=== PATIENT | female | born 1980 | race Asian ===

== ENCOUNTER 2018-04-24 05:36 | Inpatient (IN) | payer MEDICAID ==
[2018-04-16 10:51] LABS: ADD MAN DIFF? NO
[2018-04-16 10:54] LABS: BASOPHILS % 0.8 % (0.0-2.0); EOSINOPHILS # 0.1 10^3/ul (0.0-0.5); EOSINOPHILS % 2.5 % (0.0-7.0); HEMATOCRIT 42.6 % (37.0-47.0); HEMOGLOBIN 14.3 g/dl (12.0-16.0); LYMPHOCYTES # 1.9 10^3/ul (0.8-2.9); LYMPHOCYTES % 36.5 % (15.0-51.0); MEAN CORPUSCULAR HEMOGLOBIN 32.2 pg (29.0-33.0); MEAN CORPUSCULAR HGB CONC 33.6 g/dl (32.0-37.0); MEAN CORPUSCULAR VOLUME 95.9 fl (82.0-101.0); MEAN PLATELET VOLUME 8.6 fl (7.4-10.4); MONOCYTE # 0.5 10^3/ul (0.3-0.9); MONOCYTES % 8.6 % (0.0-11.0); NEUTROPHIL # 2.7 10^3/ul (1.6-7.5); NEUTROPHILS % 51.4 % (39.0-77.0); PLATELET COUNT 343 10^3/UL (140-415); RED BLOOD COUNT 4.44 10^6/ul (4.20-5.40); RED CELL DISTRIBUTION WIDTH 11.5 % (11.5-14.5)
[2018-04-16 10:54] LABS: WHITE BLOOD COUNT 5.3 10^3/ul (4.8-10.8)
[2018-04-16 10:59] LABS: ADD UMIC YES; UR ASCORBIC ACID NEGATIVE (NEGATIVE); UR BACTERIA FEW /HPF (NONE SEEN); UR BILIRUBIN (Dip) NEGATIVE (NEGATIVE); UR BLOOD (Dip) 1+ mg/dL (NEGATIVE); UR CLARITY CLEAR (CLEAR); UR COLOR STRAW (YELLOW); UR GLUCOSE (Dip) NEGATIVE (NEGATIVE); UR KETONES (Dip) NEGATIVE (NEGATIVE); UR LEUKOCYTE ESTERASE (Dip) NEGATIVE Leu/ul (NEGATIVE); UR NITRITE (Dip) NEGATIVE (NEGATIVE); UR RBC 1 /HPF (0-5); UR SPECIFIC GRAVITY (Dip) 1.004 (1.003-1.030); UR SQUAMOUS EPITHELIAL CELL FEW /HPF (FEW); UR TOTAL PROTEIN (Dip) NEGATIVE (NEGATIVE); UR UROBILINOGEN (Dip) NEGATIVE (NEGATIVE); UR WBC 0 /HPF (0-5)
[2018-04-16 11:12] LABS: INR 0.86; PROTIME 11.8 Sec (11.9-14.9); PT RATIO 0.9
[2018-04-16 11:13] LABS: PARTIAL THROMBOPLASTIN TIME 28.5 Sec (23.0-35.0)
[2018-04-16 11:33] LABS: ALANINE AMINOTRANSFERASE 15 IU/L (13-69); ALBUMIN 4.6 g/dl (3.3-4.9); ALBUMIN/GLOBULIN RATIO 1.31; ALKALINE PHOSPHATASE 125 IU/L (42-121); ANION GAP 11 (8-16); ASPARTATE AMINO TRANSFERASE 28 IU/L (15-46); BILIRUBIN,INDIRECT 0.3 mg/dl (0-1.1); BILIRUBIN,TOTAL 0.3 mg/dl (0.2-1.3); BLOOD UREA NITROGEN 13 mg/dl (7-20); CALCIUM 9.5 mg/dl (8.4-10.2); CARBON DIOXIDE 31 mmol/L (21-31); CHLORIDE 103 mmol/L (97-110); CREATININE 0.62 mg/dl (0.44-1.00); GLUCOSE 99 mg/dl (70-220); POTASSIUM 4.2 mmol/L (3.5-5.1); SODIUM 141 mmol/L (135-144); TOTAL PROTEIN 8.1 g/dl (6.1-8.1)
[2018-04-24] MEDS: SOD CHLORIDE 0.9% 1,000 ML IV ×2 (06:00→15:23)
[2018-04-24] MEDS: CEFAZOLIN 2 GM/50 ML (PMX) 50 ML IVPB (06:00)
[2018-04-24] MEDS ORDERED: DESFLURANE 15 MIN (07:00)
[2018-04-24] MEDS ORDERED: ROCURONIUM 50 MG INJ (07:51)
[2018-04-24] MEDS ORDERED: PROPOFOL 20 ML (07:51)
[2018-04-24] MEDS ORDERED: HYDROmorphONE 2 MG/ML SYG (07:51)
[2018-04-24] MEDS ORDERED: LIDOCAINE 1% (MDV) 20 ML INJ (07:51)
[2018-04-24] MEDS ORDERED: MIDAZOLAM 1 MG/ML 2 ML INJ (07:51)
[2018-04-24] MEDS: LACTATED RINGER'S 1,000 ML IV ×2 (07:58→17:24)
[2018-04-24] MEDS ORDERED: DIPHENHYDRAMINE 50 MG INJ IV (08:00)
[2018-04-24] MEDS ORDERED: HYDROmorphONE 0.5 MG/0.5 ML SYG IV (08:00)
[2018-04-24] MEDS ORDERED: ACETAMINOPHEN 325 MG TAB PO (08:00)
[2018-04-24] MEDS ORDERED: HYDROCODONE/APAP (10/325) TAB PO (08:00)
[2018-04-24] MEDS ORDERED: DEXAMETHASONE 4 MG/ML 1 ML INJ (08:04)
[2018-04-24] MEDS ORDERED: ONDANSETRON 4 MG INJ (08:04)
[2018-04-24] MEDS: POLYMYXIN/BACITRACIN 1L IRRIG (08:29)
[2018-04-24] MEDS: GENTAMICIN 80 MG INJ (08:29)
[2018-04-24] MEDS: SODIUM CL BACTERIOSTATIC 30 ML INJ (12:07)
[2018-04-24] MEDS: BUPIVACAINE LIPOSOME/PF 266 MG/20 ML VIAL INFIL (12:07)
[2018-04-24] MEDS ORDERED: SUGAMMADEX SODIUM 200 MG/2 ML VIAL IV (12:09)
[2018-04-24] MEDS ORDERED: HYDROmorphONE 1 MG/5 ML IV SYRINGE IV ×2 (13:00)
[2018-04-24] MEDS: ONDANSETRON 4 MG INJ IV (14:28)
[2018-04-25] MEDS: LACTATED RINGER'S 1,000 ML IV ×2 (02:42→03:43)
== END 2018-04-25 13:30 | disposition home or self-care (01) | DRG 583 ==
LOC: REC 05:36 → 2NE 15:45
PROC: 0HRV0JZ Replacement of Bilateral Breast with Synthetic Substitute, Open Approach (ICD-10-PCS; principal; 2018-04-24 07:30)
PROC: 0HUV0JZ Supplement Bilateral Breast with Synthetic Substitute, Open Approach (ICD-10-PCS; 2018-04-24 07:30)
DX: C50.911 Malignant neoplasm of unspecified site of right female breast (principal)
CPT/HCPCS: 71045; 80053; 81001; 85025; 85610; 85730; 88300; 88307; 93005